=== PATIENT | male | born 1935 | race Hispanic/Latino ===

== ENCOUNTER 2019-01-27 15:13 | Emergency (ER) | payer OTHER, MEDICARE ==
[2019-01-27] MEDS ORDERED: IBUPROFEN 400 MG TABLET ONE (16:16)
== END 2019-01-27 16:53 | disposition home or self-care (01) ==
LOC: EDH 15:13
DX: S80.01XA Contusion of right knee, initial encounter (principal); I10 Essential (primary) hypertension; W18.39XA Other fall on same level, initial encounter; Y93.89 Activity, other specified; Y92.89 Other specified places as the place of occurrence of the external cause; Y99.8 Other external cause status
CPT/HCPCS: 29505; 73562